=== PATIENT | female | born 1980 | race Caucasian/White ===

== ENCOUNTER → 2017-01-25 | Outpatient (CLI) | payer BC ==
[2017-01-25 17:40] LABS: POC - CREATININE 1.27 mg/dL (0.44-1.03)
== END | disposition home or self-care (01) ==
LOC: CCAT 13:12
PROVIDERS: Nurse Practitioner Family
DX: R23.1 Pallor (principal); Z53.9 Procedure and treatment not carried out, unspecified reason
CPT/HCPCS: 82565